=== PATIENT | female | born 1995 | race Two or more races ===

== ENCOUNTER 2019-05-18 14:19 | Outpatient (CLI) | payer BC ==
[~2019-05-18] VITALS: Ht 167.6 cm; Wt 77.3 kg
[2019-05-18 14:32] VITALS: BP 106/59
[2019-05-18 14:43] LABS: MICROSCOPIC NOT IND
[2019-05-18] MEDS ORDERED: PREN-3 PO (16:02)
== END 2019-05-18 16:34 | disposition home or self-care (01) ==
LOC: LDOP 14:19
PROVIDERS: ATTEND Obstetrics & Gynecology Maternal & Fetal Medicine
DX: O26.893 Other specified pregnancy related conditions, third trimester (principal); R10.9 Unspecified abdominal pain; Z3A.29 29 weeks gestation of pregnancy
CPT/HCPCS: 59025; 81003; 87086; 99201; G0463

== ENCOUNTER 2019-06-22 10:35 | Inpatient (IN) | payer BC, OTHER ==
[~2019-06-22] VITALS: Ht 167.6 cm; Wt 85.0 kg
[~2019-06-22 10:35] MED LIST: PREN-3 PO
[2019-06-22 11:17] LABS: BASOPHILS # (AUTO) 0.08 x10^3/uL (0-0.1); BASOPHILS % (AUTO) 1 % (0-1); EOSINOPHILS # (AUTO) 0.09 x10^3/uL (0-0.4); EOSINOPHILS % (AUTO) 1 % (1-7); LYMPHOCYTES % (AUTO) 22 % (22-44); MD NO; MEAN CORPUSCULAR HEMOGLOBIN 31.1 pg (27.0-34.8); MEAN CORPUSCULAR HGB CONC 33.1 g/dL (32.4-35.8); MONOCYTES # (AUTO) 0.78 x10^3/uL (0.2-0.8); MONOCYTES % (AUTO) 9 % (2-9); NEUTROPHILS # (AUTO) 5.57 x10^3/uL (1.8-6.8); NEUTROPHILS % (AUTO) 67 % (42-75); PLATELET COUNT 206 x10^3/uL (130-400); RED BLOOD COUNT 3.63 x10^6/uL (3.82-5.3); RED CELL DISTRIBUTION WIDTH 12.2 % (9.6-15.2)
[2019-06-22 11:19] LABS: MICROSCOPIC AUTO
[2019-06-22 11:29] LABS: ALBUMIN 2.6 g/dL (3.4-5.0); ANION GAP 8 mmol/L (5-15); CALCIUM 8.8 mg/dL (8.5-10.1); CHLORIDE 108 mmol/L (98-107)
[2019-06-22 11:31] LABS: CREATININE,URINE RANDOM 28.2 mg/dL
[2019-06-22 11:33] LABS: ALANINE AMINOTRANSFERASE 14 U/L (12-78); ALKALINE PHOSPHATASE 114 U/L (45-117); BILIRUBIN,TOTAL 0.4 mg/dL (0.2-1.0); CREATININE 0.65 mg/dL (0.55-1.02)
[2019-06-22] MEDS ORDERED: D5%-LACTATED RINGERS 1,000 ML IV SCH (12:56)
[2019-06-22] MEDS ORDERED: MAGNESIUM SULF. PMX 20GM/500ML 500 ML IV SCH (12:56)
[2019-06-22] MEDS ORDERED: LACTATED RINGERS 1,000 ML IV SCH ×3 (12:56→22:10)
[2019-06-22] MEDS ORDERED: OXYTOCIN 30U/ 0.9% NaCL 500ML 500 ML IV ONE (12:56)
[2019-06-22] MEDS ORDERED: MAGNESIUM SULFATE PMX 2GM/50ML 50 ML IVPB ONE (13:00)
[2019-06-22] MEDS ORDERED: LABETALOL 5MG/ML 40ML VIAL IVPush ONE (13:00)
[2019-06-22] MEDS ORDERED: FENTANYL PF 100 MCG/2ML IV PRN (13:00)
[2019-06-22] MEDS ORDERED: TERBUTALINE 1 MG/ML, 1ML SQ PRN (13:00)
[2019-06-22] MEDS ORDERED: hydrALAzine 20 MG/ML, 1ML IVPush ONE ×3 (13:00)
[2019-06-22] MEDS ORDERED: ONDANSETRON 2MG/ML, 2ML IVPush PRN (13:00)
[2019-06-22] MEDS ORDERED: FENTANYL PF 100 MCG/2ML IVPush PRN (13:00)
[2019-06-22] MEDS ORDERED: MAGNESIUM SULFATE PMX 4GM/100M 100 ML IVPB ONE (13:00)
[2019-06-22] MEDS ORDERED: TERBUTALINE 1 MG/ML, 1ML IVPush PRN (13:00)
[2019-06-22] MEDS ORDERED: CALCIUM CARBONATE 500 MG TAB.CHEW PO PRN (13:00)
[2019-06-22] MEDS ORDERED: LABETALOL 200 MG TABLET ONE (13:08)
[2019-06-22] MEDS ORDERED: hydrALAzine 20 MG/ML, 1ML ONE (13:08)
[2019-06-22] MEDS ORDERED: LABETALOL 100 MG TABLET ONE (13:08)
[2019-06-22] MEDS ORDERED: LABETALOL 300 MG TABLET PO ONE (13:30)
[2019-06-22] MEDS ORDERED: MISOPROSTOL 25 MCG TABLET ONE ×2 (13:41→17:43)
[2019-06-22] MEDS ORDERED: OXYTOCIN 30U/ 0.9% NaCL 500ML 500 ML ONE (13:41)
[2019-06-22] MEDS ORDERED: NEWBORN KIT ONE (13:41)
[2019-06-22] MEDS ORDERED: LIDOCAINE 1%, 20ML ONE (13:41)
[2019-06-22] MEDS ORDERED: MISOPROSTOL 200 MCG TABLET ONE (13:41)
[2019-06-22] MEDS: MISOPROSTOL 25 MCG TABLET VG PRN ×2 (13:53→17:54)
[2019-06-22] MEDS ORDERED: FENTANYL/BUPIV./NS/PF 250 ML EPIDCONT SCH (18:04)
[2019-06-22] MEDS ORDERED: FENTANYL PF 500 MCG, BUPIVACAINE/PF 0.5%, 30ML 62.5 ML in SODIUM CHLORIDE 0.9% 177.5 ML EPIDCONT SCH (18:30)
[2019-06-22] MEDS ORDERED: EPHEDRINE 50 MG/ML, 1ML IVPush PRN (18:30)
[2019-06-22] MEDS ORDERED: LACTATED RINGERS 1,000 ML IVBOLUS PRN (18:30)
[2019-06-22] MEDS ORDERED: SODIUM CITRATE/CITRIC ACID 15 ML UDC ONE (19:00)
[2019-06-22] MEDS ORDERED: METOCLOPRAMIDE 5 MG/ML, 2ML ONE (19:00)
[2019-06-22] MEDS ORDERED: TERBUTALINE 1 MG/ML, 1ML ONE (21:28)
[2019-06-22] MEDS ORDERED: morphine SULFATE/PF 0.5 MG/ML, 10ML ONE (21:31)
[2019-06-22] MEDS ORDERED: EPINEPHRINE 1 MG/ML, 1ML ONE (21:38)
[2019-06-22] MEDS ORDERED: CEFAZOLIN 1,000 MG ONE (21:55)
[2019-06-22] MEDS ORDERED: PHENYLEPHRINE 10 MG/ML ONE (21:55)
[2019-06-22] MEDS ORDERED: ONDANSETRON 2MG/ML, 2ML ONE (21:55)
[2019-06-22] MEDS ORDERED: OXYTOCIN 10 UNITS/ML, 1ML ONE (21:55)
[2019-06-22] MEDS ORDERED: WATER-INJECTION,STERILE 10 ML IV ONE ×4 (21:55→21:56)
[2019-06-22] MEDS ORDERED: EPHEDRINE 50 MG/ML, 1ML ONE (21:55)
[2019-06-22] MEDS ORDERED: SODIUM CHLORIDE 0.9% PF 10ML ONE ×3 (21:56)
[2019-06-22] MEDS ORDERED: SODIUM CITRATE/CITRIC ACID 15 ML UDC PO ONE (22:00)
[2019-06-22] MEDS ORDERED: LACTATED RINGERS 1,000 ML IVBOLUS ONE (22:00)
[2019-06-22] MEDS ORDERED: METOCLOPRAMIDE 5 MG/ML, 2ML IV ONE (22:00)
[2019-06-22] MEDS ORDERED: OXYTOCIN 30U/ 0.9% NaCL 500ML 500 ML IV SCH (22:10)
[2019-06-22] MEDS ORDERED: ACETAMINOPHEN 325 MG TABLET PO PRN (22:30)
[2019-06-22] MEDS ORDERED: DIPH,PERTUSS(ACELL),TET VAC/PF NC IM-VACC PRN (22:30)
[2019-06-22] MEDS ORDERED: CARBOPROST TROMETHAMINE 250 MCG/ML, 1ML IM PRN (22:30)
[2019-06-22] MEDS ORDERED: MISOPROSTOL 200 MCG TABLET PR PRN (22:30)
[2019-06-22] MEDS ORDERED: morphine SULFATE 10 MG/ML, 1ML IVPush PRN (22:30)
[2019-06-22] MEDS ORDERED: OXYcodone/APAP 5/325MG TABLET PO PRN ×2 (22:30)
[2019-06-22] MEDS ORDERED: SIMETHICONE 80 MG CHEW TAB PO PRN (22:30)
[2019-06-22] MEDS ORDERED: ONDANSETRON 2MG/ML, 2ML IV PRN (22:30)
[2019-06-22] MEDS ORDERED: MEASLES,MUMPS&RUBELLA VACC/PF 0.5 ML SQ-VACC PRN (22:30)
[2019-06-22] MEDS ORDERED: MAGNESIUM SULF. PMX 20GM/500ML 500 ML IV ONE (23:34)
[2019-06-23] MEDS ORDERED: KETOROLAC 30 MG/1 ML ONE ×4 (00:02→19:06)
[2019-06-23] MEDS: KETOROLAC 30 MG/1 ML IV SCH ×4 (00:06→19:10)
[2019-06-23] MEDS: LACTATED RINGERS 1,000 ML IV SCH ×3 (00:29→19:10)
[2019-06-23] MEDS ORDERED: OXYcodone/APAP 5/325MG TABLET ONE ×2 (00:49→22:06)
[2019-06-23 06:54] LABS: BASOPHILS # (AUTO) 0.01 x10^3/uL (0-0.1); BASOPHILS % (AUTO) 0 % (0-1); EOSINOPHILS # (AUTO) 0.03 x10^3/uL (0-0.4); EOSINOPHILS % (AUTO) 0 % (1-7); LYMPHOCYTES # (AUTO) 1.73 x10^3/uL (1-3.4); LYMPHOCYTES % (AUTO) 13 % (22-44); MD NO; MEAN CORPUSCULAR HEMOGLOBIN 31.3 pg (27.0-34.8); MEAN PLATELET VOLUME 9.1 fL (7.4-10.4); MONOCYTES # (AUTO) 0.96 x10^3/uL (0.2-0.8); MONOCYTES % (AUTO) 7 % (2-9); NEUTROPHILS # (AUTO) 10.97 x10^3/uL (1.8-6.8); NEUTROPHILS % (AUTO) 80 % (42-75); PLATELET COUNT 184 x10^3/uL (130-400); RED BLOOD COUNT 3.31 x10^6/uL (3.82-5.3)
[2019-06-23 07:34] VITALS: BP 130/83
[2019-06-23] MEDS: PRENATAL VIT/IRON/FA 1 EACH TABLET PO SCH (07:45)
[2019-06-23] MEDS ORDERED: MAGNESIUM SULF. PMX 20GM/500ML 500 ML IV ONE ×2 (08:17→19:06)
[2019-06-23] MEDS: MAGNESIUM SULF. PMX 20GM/500ML 500 ML IV SCH ×2 (08:21→19:14)
[2019-06-24] VITALS: BP 142/92
[2019-06-24] MEDS: KETOROLAC 30 MG/1 ML IV SCH ×4 (01:07→20:00)
[2019-06-24 04:00] VITALS: BP 124/81
[2019-06-24] MEDS: LACTATED RINGERS 1,000 ML IV SCH ×2 (04:10→14:10)
[2019-06-24 07:30] VITALS: BP 149/95
[2019-06-24] MEDS: PRENATAL VIT/IRON/FA 1 EACH TABLET PO SCH (08:45)
[2019-06-24] MEDS: DOCUSATE 100 MG CAPSULE PO PRN ×2 (08:45→22:00)
[2019-06-24] MEDS ORDERED: niFEDipine ER 30 MG TABLET.ER PO SCH (09:00)
[2019-06-24 12:50] VITALS: BP 136/83
[2019-06-24 17:01] VITALS: BP 156/91
[2019-06-24 21:45] VITALS: BP 132/82
[2019-06-24] MEDS: IBUPROFEN 600 MG TABLET PO PRN (22:00)
[2019-06-25] VITALS (7 sets, daily range): BP systolic 139–151; BP diastolic 88–99
[2019-06-25] MEDS: LACTATED RINGERS 1,000 ML IV SCH ×3 (00:10→21:43)
[2019-06-25] MEDS: DOCUSATE 100 MG CAPSULE PO PRN (08:56)
[2019-06-25] MEDS: PRENATAL VIT/IRON/FA 1 EACH TABLET PO SCH (08:56)
[2019-06-25] MEDS: niFEDipine ER 30 MG TABLET.ER PO SCH (09:00)
[2019-06-25] MEDS: IBUPROFEN 600 MG TABLET PO PRN (17:00)
[2019-06-26] MEDS: LACTATED RINGERS 1,000 ML IV SCH (02:57)
[2019-06-26 05:30] VITALS: BP 153/95
[2019-06-26] MEDS: niFEDipine ER 30 MG TABLET.ER PO SCH (05:54)
[2019-06-26] MEDS: DOCUSATE 100 MG CAPSULE PO PRN ×2 (07:59→20:13)
[2019-06-26] MEDS: PRENATAL VIT/IRON/FA 1 EACH TABLET PO SCH (07:59)
[2019-06-26 08:15] VITALS: BP 148/95
[2019-06-26 12:00] VITALS: BP 133/84
[2019-06-26 16:51] VITALS: BP 130/87
[2019-06-26] MEDS: IBUPROFEN 600 MG TABLET PO PRN (20:13)
[2019-06-26 20:15] VITALS: BP 121/80
[2019-06-27 00:10] VITALS: BP 121/80
[2019-06-27 04:25] VITALS: BP 126/81
[2019-06-27 07:31] VITALS: BP 128/82
[2019-06-27] MEDS: niFEDipine ER 30 MG TABLET.ER PO SCH (08:04)
[2019-06-27] MEDS: DOCUSATE 100 MG CAPSULE PO PRN (08:04)
[2019-06-27] MEDS: PRENATAL VIT/IRON/FA 1 EACH TABLET PO SCH (08:04)
[2019-06-27 11:52] VITALS: BP 117/78
[2019-06-27] MEDS ORDERED: NIFE30TA2 PO (13:47)
[2019-06-27] MEDS ORDERED: IBUP-1222 PO (13:47)
[2019-06-27] MEDS ORDERED: OXYC-302 PO (13:47)
== END 2019-06-27 15:45 | disposition home or self-care (01) | DRG 788 ==
LOC: LDOP 10:35 → LDIP 13:05 → 2NE 06-23 00:29 → 2NW 06-23 22:49
PROVIDERS: ADMIT Obstetrics & Gynecology Maternal & Fetal Medicine; ATTEND Obstetrics & Gynecology Maternal & Fetal Medicine
PROC: 10D00Z1 Extraction of Products of Conception, Low, Open Approach (ICD-10-PCS; principal; 2019-06-22)
PROC: 0UB00ZZ Excision of Right Ovary, Open Approach (ICD-10-PCS; 2019-06-22)
DX: O77.9 Labor and delivery complicated by fetal stress, unspecified (principal); O14.14 Severe pre-eclampsia complicating childbirth; Z88.0 Allergy status to penicillin; Z3A.34 34 weeks gestation of pregnancy; Z37.0 Single live birth
CPT/HCPCS: 36415; 80053; 81001; 82570; 82803; 83735; 84156; 84550; 85025; 86850; 86900; 87081; 87086; 88305; G0378; J0171; J0690; J1885; J2274; J2405; J0360; J2370; J2590; J3475; J7120